=== PATIENT | male | born 1965 | race African-American/Black ===

== ENCOUNTER 2020-06-25 06:07 | Emergency (ER) | payer SELFPAY ==
[~2020-06-25] VITALS: Ht 190.5 cm; Wt 113.6 kg
[2020-06-25 07:26] LABS: BILIRUBIN,URINE NEGATIVE (NEG); CLARITY,URINE CLEAR; COLOR,URINE YELLOW; NITRITE,URINE NEGATIVE (NEG); PH,URINE 7.5 (<5.0-8.0); PROTEIN,URINE NEGATIVE (NEG-TRACE)
[2020-06-25 07:54] LABS: AMORPHOUS SEDIMENT,UR PRESENT /HPF; BACTERIA,URINE FEW /HPF (0-FEW); RBC,URINE OCC /HPF (0-2)
[2020-06-25] MEDS ORDERED: MORPHINE SULFATE 10 MG/ML VIAL. IV ONE (08:00)
[2020-06-25] MEDS ORDERED: ONDANSETRON PF 4 MG/2 ML VIAL. IVP ONE (08:00)
--- NOTE | 2020-06-25 08:02 | ED.ADGEN ---
Past Medical History Past Medical History: Diabetes-Type II, Hypertension Past Surgical History: Other Additional Past Surgical Histo: Hernia Smoking Status: Current Every Day Smoker Alcohol Use: None General Adult EDM: Chief Complaint: ABDOMINAL PAIN HPI: HPI: Patient is a 54-year-old male who presents to the emergency room complaining of excruciating upper and mid abdominal pain. He states that this started on Wednesday after he ate some chili. It has been constant since then. He has not had a bowel movement since Wednesday morning. He has had multiple episodes of vomiting. He feels like he cannot get his breath because of pain. He states the pain is aching and sharp in nature. Laying flat makes it much worse. Pain is slightly better when he is setting up. He has never had anything like this previously. He has never had surgery in his abdomen. He denies any change of taste, change of smell, sore throat, URI symptoms, fever, chills, sweats. Review of Systems: Review of Systems: Complete ROS is negative unless otherwise documented in HPI Current Medications: Current Medications Medications (Trade) Dose Ordered Sig/Leanne Start Time Stop Time Status Last Admin Dose Admin Info (CONTRAST GIVEN -- Rx MONITORING) 1 each PRN DAILY PRN 06/25/20 08:30 06/27/20 08:29 Iohexol (Omnipaque 240 Mg/ml) 50 ml 1X ONCE 06/25/20 08:15 06/25/20 08:19 DC 06/25/20 08:15 50 ML Iohexol (Omnipaque 300 Mg/ml) 75 ml 1X ONCE 06/25/20 08:15 06/25/20 08:19 DC 06/25/20 08:15 75 ML Morphine Sulfate (Morphine Sulfate) 5 mg 1X ONCE 06/25/20 08:00 06/25/20 08:01 DC 06/25/20 08:27 5 MG Multi-Ingredient Mouthwash/Gargle (Gi Cocktail) 20 ml 1X ONCE 06/25/20 09:45 06/25/20 09:46 DC 06/25/20 09:54 20 ML Ondansetron HCl (Zofran) 4 mg 1X ONCE 06/25/20 08:00 06/25/20 08:01 DC 06/25/20 08:26 4 MG Allergies: Allergies: Allergies Coded Allergies Type Severity Reaction Last Updated Verified Penicillins Allergy Intermediate 06/25/20 Yes Physical Exam: PE: General: Awake, alert, moderate distress. Well Nourished, well hydrated. Cooperative HEENT: Atraumatic, EOMI, PERRL, airway patent, moist oral mucosa Neck: Supple, trachea midline Respiratory: CTA bilaterally, tachypneic, no wheezing/crackles CV: RRR, no murmur, cap refill <2 GI: Soft, diffuse tenderness with guarding MSK: No obvious deformities Skin: Warm, dry, intact Neuro: A&O x3, speech NL, sensory and motor grossly intact, no focal deficits Psych: Normal affect, normal mood, not suicidal or homicidal Current Patient Data: Labs: Laboratory Tests Test 06/25/20 06:49 06/25/20 07:32 06/25/20 07:36 Urine Collection Type Unknown Urine Color Yellow Urine Clarity Clear Urine pH 7.5 (<5.0-8.0) Urine Specific Gate 1.015 (1.000-1.030) Urine Protein Negative mg/dL (NEG-TRACE) Urine Glucose (UA) Negative mg/dL (NEG) Urine Ketones (Stick) Negative mg/dL (NEG) Urine Blood Negative (NEG) Urine Nitrite Negative (NEG) Urine Bilirubin Negative (NEG) Urine Urobilinogen Dipstick 1.0 mg/dL (0.2 mg/dL) Urine Leukocyte Esterase Negative (NEG) Urine RBC Occ /HPF (0-2) Urine WBC 1-4 /HPF (0-4) Urine Squamous Epithelial Cells Mod /LPF Urine Amorphous Sediment Present /HPF Urine Bacteria Few /HPF (0-FEW) Urine Mucus Slight /LPF White Blood Count 10.5 x10^3/uL (4.0-11.0) Red Blood Count 4.58 x10^6/uL (4.30-5.70) Hemoglobin 13.0 g/dL (13.0-17.5) Hematocrit 39.2 % (39.0-53.0) Mean Corpuscular Volume 86 fL (79-100) Mean Corpuscular Hemoglobin 29 pg (25-35) Mean Corpuscular Hemoglobin Concent 33 g/dL (31-37) Red Cell Distribution Width 14.4 % (11.5-14.5) Platelet Count 276 x10^3/uL (140-400) Neutrophils (%) (Auto) 74 % (31-73) H Lymphocytes (%) (Auto) 15 % (24-48) L Monocytes (%) (Auto) 10 % (0-9) H Eosinophils (%) (Auto) 0 % (0-3) Basophils (%) (Auto) 1 % (0-3) Neutrophils # (Auto) 7.8 x10^3/uL (1.8-7.7) H Lymphocytes # (Auto) 1.6 x10^3/uL (1.0-4.8) Monocytes # (Auto) 1.0 x10^3/uL (0.0-1.1) Eosinophils # (Auto) 0.0 x10^3/uL (0.0-0.7) Basophils # (Auto) 0.1 x10^3/uL (0.0-0.2) Sodium Level 136 mmol/L (136-145) Potassium Level 2.9 mmol/L (3.5-5.1) *L Chloride Level 98 mmol/L (98-107) Carbon Dioxide Level 27 mmol/L (21-32) Anion Gap 11 (6-14) Blood Urea Nitrogen 10 mg/dL (8-26) Creatinine 0.9 mg/dL (0.7-1.3) Estimated GFR (Cockcroft-Gault) 106.4 BUN/Creatinine Ratio 11 (6-20) Glucose Level 103 mg/dL (70-99) H Calcium Level 9.6 mg/dL (8.5-10.1) Total Bilirubin 0.5 mg/dL (0.2-1.0) Aspartate Amino Transferase (AST) 18 U/L (15-37) Alanine Aminotransferase (ALT) 31 U/L (16-63) Alkaline Phosphatase 53 U/L (46-116) Total Protein 7.8 g/dL (6.4-8.2) Albumin 3.3 g/dL (3.4-5.0) L Albumin/Globulin Ratio 0.7 (1.0-1.7) L Lipase 125 U/L (73-393) Glucose (Fingerstick) 112 mg/dL (70-99) H Laboratory Tests 06/25/20 07:32 Laboratory Tests 06/25/20 07:32 Vital Signs: Vital Signs Date Time Temp Pulse Resp B/P (MAP) Pulse Ox O2 Delivery O2 Flow Rate FiO2 06/25/20 08:28 86 18 126/81 (96) 96 Room Air 06/25/20 06:41 97.9 97.9 EKG: EKG: [] Heart Score: Risk Factors: Risk Factors: DM, Current or recent (<one month) smoker, HTN, HLP, family history of CAD, obesity. Risk Scores: Score 0 - 3: 2.5% MACE over next 6 weeks - Discharge Home Score 4 - 6: 20.3% MACE over next 6 weeks - Admit for Clinical Observation Score 7 - 10: 72.7% MACE over next 6 weeks - Early Invasive Strategies Radiology/Procedures: Radiology/Procedures: [] Course & Med Decision Making: Course & Med Decision Making Pertinent Labs and Imaging studies reviewed. (See chart for details) Patient is a 54-year-old male who presents to the emergency room complaining of severe abdominal pain. Patient does have associated shortness of breath, however he feels this is due to his pain. He has not had any cough or URI symptoms that are suggestive of novel coronavirus 19. Chest x-ray was ordered to rule out any infiltrates. Abdominal work-up was ordered including CMP, CBC, lipase, UA, CT abdomen pelvis with contrast. He was given morphine and Zofran. CT shows esophagitis. Patient likely has gastritis with esophagitis. He will be treated with omeprazole and carafate. Patient placed on augmentin for possible pneumonia. Patient's test results and vitals while in the ED were fully reviewed and discussed with the patient. Patient is stable and at this time does not need admission to the hospital. We have discussed strict return precautions and the importance of following up with their Primary Care Physician. Patient stated understanding and was given an opportunity to ask any questions. Patient is in agreement with plan. Dragon Disclaimer: Dragon Disclaimer: This electronic medical record was generated, in whole or in part, using a voice recognition dictation system. Departure Departure Impression: Primary Impression: Esophagitis Additional Impressions: Gastritis Pleural effusion Disposition: 01 DC HOME SELF CARE/HOMELESS Condition: STABLE Referrals: NO PCP (PCP) Patient Instructions: Gastritis, Adult Scripts Amoxicillin/Potassium Clav (AUGMENTIN 875-125 TABLET) 1 Each Tablet 1 TAB PO Q12HR for 5 Days, #10 TAB Prov: BRIEN YOUNG MD 06/25/20 Omeprazole (OMEPRAZOLE) 40 Mg Capsule.dr 1 CAP PO DAILY, #30 CAP 3 Refills Prov: BRIEN YOUNG MD 06/25/20 Sucralfate (CARAFATE) 1 Gm Tablet 1 TAB PO QID for 30 Days, #120 TAB 0 Refills Prov: BRIEN YOUNG MD 06/25/20 Problem Qualifiers BRIEN YOUNG MD Jun 25, 2020 08:02
[2020-06-25] MEDS ORDERED: IOHEXOL 240 MG/ML 50ML VIAL. PO ONE (08:15)
[2020-06-25] MEDS ORDERED: IOHEXOL 300 MG/ML 100ML VIAL. IV ONE (08:15)
[2020-06-25 08:22] LABS: BASO # 0.1 x10^3/uL (0.0-0.2); BASO % 1 % (0-3); EOS % 0 % (0-3); HEMATOCRIT 39.2 % (39.0-53.0); LYMPH # 1.6 x10^3/uL (1.0-4.8); LYMPH % 15 % (24-48); MEAN CORPUSCULAR HEMOGLOBIN 29 pg (25-35); MEAN CORPUSCULAR HGB CONC 33 g/dL (31-37); MEAN CORPUSCULAR VOLUME 86 fL (79-100); MONO % 10 % (0-9); NEUT # 7.8 x10^3/uL (1.8-7.7); NEUT % 74 % (31-73); PLATELET COUNT 276 x10^3/uL (140-400); RED BLOOD COUNT 4.58 x10^6/uL (4.30-5.70); RED CELL DISTRIBUTION WIDTH 14.4 % (11.5-14.5); WHITE BLOOD COUNT 10.5 x10^3/uL (4.0-11.0)
--- NOTE | 2020-06-25 08:24 | RAD ---
XR CHEST 1V CLINICAL INDICATIONS: Shortness of breath. COMPARISON: November 05, 2005. Findings: Linear atelectasis of the left lung base is seen. No lung consolidation or pleural effusion or pulmonary edema or lung mass or pneumothorax is seen. The heart size, pulmonary vasculature, med iastinum and both edmund are unremarkable. IMPRESSION: Linear atelectasis of the left lung base. Electronically signed by: Sonu Brown MD (06/25/2020 8:22 AM) [id number]
[2020-06-25] MEDS ORDERED: CONTRAST GIVEN. MC PRN (08:30)
[2020-06-25 08:36] LABS: ALBUMIN 3.3 g/dL (3.4-5.0); ALBUMIN/GLOBULIN RATIO 0.7 (1.0-1.7); CALCIUM 9.6 mg/dL (8.5-10.1); CREATININE 0.9 mg/dL (0.7-1.3); GFR 106.4; TOTAL BILIRUBIN 0.5 mg/dL (0.2-1.0); TOTAL PROTEIN 7.8 g/dL (6.4-8.2)
[2020-06-25 08:38] LABS: POTASSIUM 2.9 mmol/L (3.5-5.1)
--- NOTE | 2020-06-25 09:20 | RAD ---
EXAM: Abdomen and pelvis CT with intravenous contrast. HISTORY: Severe pain. TECHNIQUE: Computed tomographic images of the abdomen and pelvis were obtained following the administ ration of intravenous contrast. Multiplanar reformatting was performed. *One or more of the following individualized dose reduction techniques were utilized for this examina tion: 1. Automated exposure control. 2. Adjustment of the mA and/or kV according to patient size. 3. Use of iterative reconstruction technique. COMPARISON: None. FINDINGS: Evaluation of the lower thorax demonstrates trace bilateral pleural effusions and patchy bi lateral lower lobe atelectasis. There is a patulous distal esophagus with slightly prominent wall. No hepatic lesion is seen. The gallbladder, pancreas, spleen and adrenal glands are unremarkable. There is a 5 mm hypodense lesion within the medial upper pole of the left kidney, too small to characteriz e and likely a cyst. There is no appendicitis. There is no bowel obstruction. The urinary bladder is unremarkable. The aorta is normal in caliber. There is no lymphadenopathy. There are degenerative winston nges throughout the spine. There is no acute or suspicious osseous lesion. IMPRESSION: 1. Slightly patulous distal esophagus with wall thickening. Correlate for possible reflux esophagitis . 2. Trace bilateral pleural effusions and bilateral lower lobe atelectasis. 3. Tiny left renal cortical cyst. Follow-up is not routinely recommended for simple cysts. Electronically signed by: Sandra Lantigua MD (06/25/2020 9:18 AM) [id number]
[2020-06-25] MEDS ORDERED: LIDO:MAALOX 1:1 20 ML SINGLE DOSE. SWSW ONE (09:45)
[2020-06-25 10:00] VITALS: BP 156/84
[2020-06-25] MEDS ORDERED: OMEP40CA7 PO (10:20)
[2020-06-25] MEDS ORDERED: SUCR1TAB35 PO (10:20)
[2020-06-25] MEDS ORDERED: AMOX1TAB61 PO (10:20)
== END 2020-06-25 10:32 | disposition home or self-care (01) ==
LOC: ER 06:07
DX: K20.90 Esophagitis, unspecified without bleeding (principal); K29.70 Gastritis, unspecified, without bleeding; J90 Pleural effusion, not elsewhere classified; E11.9 Type 2 diabetes mellitus without complications; I10 Essential (primary) hypertension; F17.200 Nicotine dependence, unspecified, uncomplicated; Z88.0 Allergy status to penicillin
CPT/HCPCS: 36415; 71045; 74177; 80053; 81001; 82962; 83690; 85025; 96374; 96375; 99285; J2270; J2405; Q9966; Q9967

== ENCOUNTER 2020-11-29 09:11 | Emergency (ER) | payer SELFPAY ==
[~2020-11-29] VITALS: Ht 190.5 cm; Wt 104.5 kg
[~2020-11-29 09:11] MED LIST: AMOX1TAB61 PO; OMEP40CA7 PO; SUCR1TAB35 PO
[2020-11-29 10:11] VITALS: BP 141/103
[2020-11-29] MEDS ORDERED: DICL50TA4 PO (11:19)
[2020-11-29] MEDS ORDERED: METH4TAB2 PO (11:19)
[2020-11-29] MEDS ORDERED: HYDR-2761 PO (11:19)
[2020-11-29] MEDS ORDERED: ORPH100T PO (11:19)
--- NOTE | 2020-11-29 11:20 | PHYS DOC ---
Past Medical History Past Medical History: Diabetes-Type II, High Cholesterol, Hypertension Additional Past Medical Histor: ECZEMA Past Surgical History: No Surgical History Additional Past Surgical Histo: Hernia Smoking Status: Never Smoker Alcohol Use: None General Adult EDM: Chief Complaint: BACK PAIN OR INJURY HPI: HPI: Patient is a 54 year old male who presents with a couple days ago was lifting a water heater and then felt a sharp shooting pain in the left lower back into his hip. He states that then last night he was working on his car and again felt it. He states this morning it is hard to get up and down was hard for him to get out of bed or walk. He states that especially with moving and sharp shooting pain. He denies numbness or tingling, focal weakness, loss of bowel bladder, urinary symptoms, fever. Review of Systems: Review of Systems: Constitutional: Denies fever or chills. [] Eyes: Denies change in visual acuity. [] HENT: Denies nasal congestion or sore throat. [] Respiratory: Denies cough or shortness of breath. [] Cardiovascular: Denies chest pain or edema. [] GI: Denies abdominal pain, nausea, vomiting, bloody stools or diarrhea. [] : Denies dysuria. [] Musculoskeletal: + Left back pain or + left hip joint pain. [] Integument: Denies rash. [] Neurologic: Denies headache, focal weakness or sensory changes. [] Endocrine: Denies polyuria or polydipsia. [] Lymphatic: Denies swollen glands. [] Psychiatric: Denies depression or anxiety. [] Heart Score: C/O Chest Pain: No Risk Factors: Risk Factors: DM, Current or recent (<one month) smoker, HTN, HLP, family history of CAD, obesity. Risk Scores: Score 0 - 3: 2.5% MACE over next 6 weeks - Discharge Home Score 4 - 6: 20.3% MACE over next 6 weeks - Admit for Clinical Observation Score 7 - 10: 72.7% MACE over next 6 weeks - Early Invasive Strategies Allergies: Allergies: Allergies Coded Allergies Type Severity Reaction Last Updated Verified Penicillins Allergy Intermediate 06/25/20 Yes Physical Exam: PE: Constitutional: Well developed, well nourished, no acute distress, non-toxic appearance. [] HENT: Normocephalic, atraumatic, bilateral external ears normal, oropharynx moist, no oral exudates, nose normal. [] Eyes: PERRLA, EOMI, conjunctiva normal, no discharge. [] Neck: Normal range of motion, no tenderness, supple, no stridor. [] Cardiovascular:Heart rate regular rhythm, no murmur [] Lungs & Thorax: Bilateral breath sounds clear to auscultation [] Abdomen: Bowel sounds normal, soft, no tenderness, no masses, no pulsatile masses. [] Skin: Warm, dry, no erythema, no rash. [] Back: No tenderness, no CVA tenderness. [] Extremities: No tenderness, no cyanosis, no clubbing, low back ROM intact but limited due to pain, no edema. [] Neurologic: Alert and oriented X 3, normal motor function, normal sensory function, no focal deficits noted. [] Psychologic: Affect normal, judgement normal, mood normal. [] Current Patient Data: Vital Signs: Vital Signs Date Time Temp Pulse Resp B/P (MAP) Pulse Ox O2 Delivery O2 Flow Rate FiO2 11/29/20 10:11 97.9 80 16 141/103 (116) 100 Room Air 97.9 EKG: EKG: [] Radiology/Procedures: Radiology/Procedures: [] Course & Med Decision Making: Course & Med Decision Making Pertinent Labs and Imaging studies reviewed. (See chart for details) See HPI. No focal bony spinal tenderness. No tenderness to his back. No focal weakness. Ambulatory with a steady gait. Speaks in full complete sentences. No sensation loss. No saddle paresthesia. No extremity edema. Skin pink warm and dry. Popliteal pulse strong and present. Alert and oriented x4. [] Dragon Disclaimer: Dragon Disclaimer: This electronic medical record was generated, in whole or in part, using a voice recognition dictation system. Departure Departure Impression: Primary Impression: Back pain Qualified Codes: M54.42 - Lumbago with sciatica, left side Disposition: 01 HOME / SELF CARE / HOMELESS Condition: STABLE Referrals: NO PCP (PCP) Patient Instructions: Low Back Strain with [facility], Sciatica with [facility] Additional Instructions: Follow-up with her primary care physician. Rest. Take medication as prescribed and with food. Try using a heating pad. Scripts Hydrocodone Bit/Acetaminophen (HYDROCODONE-APAP 5-325 ) 1 Tab Tablet 1 TAB PO PRN Q6HRS PRN for PAIN, #6 TAB 0 Refills Prov: MAIDA MURILLO APRN 11/29/20 Orphenadrine Citrate (ORPHENADRINE CITRATE) 100 Mg Tablet.er 1 TAB PO BID, #14 TAB 1 Refill Prov: MAIDA MURILLO APRN 11/29/20 Diclofenac Sodium (DICLOFENAC SODIUM) 50 Mg Tablet.dr 1 TAB PO BID, #14 TAB Prov: MAIDA MURILLO APRN 11/29/20 Methylprednisolone (MEDROL) 4 Mg Tab.ds.pk 1 PKG PO UD, #1 PKG Prov: MAIDA MURILLO APRN 11/29/20 MAIDA MURILLO APRN Nov 29, 2020 11:20
== END 2020-11-29 11:59 | disposition home or self-care (01) ==
LOC: ER 09:11
DX: M54.42 Lumbago with sciatica, left side (principal); M25.552 Pain in left hip; E11.9 Type 2 diabetes mellitus without complications; E78.00 Pure hypercholesterolemia, unspecified; I10 Essential (primary) hypertension; Z88.0 Allergy status to penicillin
CPT/HCPCS: 99283

== ENCOUNTER 2021-02-17 21:51 | Emergency (ER) | payer SELFPAY ==
[~2021-02-17] VITALS: Ht 190.5 cm; Wt 102.1 kg
[~2021-02-17 21:51] MED LIST changes: +DICL50TA4 PO; +HYDR-2761 PO; +METH4TAB2 PO; +ORPH100T PO
[2021-02-17] MEDS ORDERED: MUPI22OI2 TP (22:33)
[2021-02-17] MEDS ORDERED: DOXY-181 PO (22:33)
[2021-02-17] MEDS ORDERED: PRED50TA PO (22:33)
--- NOTE | 2021-02-17 22:36 | PHYS DOC ---
Past Medical History Past Medical History: Diabetes-Type II, High Cholesterol, Hypertension Additional Past Medical Histor: ECZEMA Past Surgical History: No Surgical History Additional Past Surgical Histo: Hernia Smoking Status: Never Smoker Alcohol Use: None General Adult EDM: Chief Complaint: FACE PROBLEM HPI: HPI: Patient is a 55 year old male without pertinent past medical history who presents with swelling on his scalp and forehead for the past 2 days. Started the day after he dyed his hair with a new product. Yesterday the hair started crusting with yellow crust. No fevers or chills. Today did have an episode of nausea with some vomiting. He has not had any swelling away from his hairline. This includes his throat, tongue, lips. No difficulty breathing. No dental pain. He is not on any prescription medications. He does have a history of eczema, but has never had eczema in this area before. Review of Systems: Review of Systems: Constitutional: Denies fever or chills. [] Eyes: Denies change in visual acuity. [] HENT: Denies nasal congestion or sore throat. [] Respiratory: Denies cough or shortness of breath. [] Cardiovascular: Denies chest pain or edema. [] GI: Denies abdominal pain, nausea, vomiting, bloody stools or diarrhea. [] : Denies dysuria. [] Musculoskeletal: Denies back pain or joint pain. [] Integument: + Rash on his scalp. [] Neurologic: Denies headache, focal weakness or sensory changes. [] Endocrine: Denies polyuria or polydipsia. [] Lymphatic: Denies swollen glands. [] Psychiatric: Denies depression or anxiety. [] Heart Score: C/O Chest Pain: No Risk Factors: Risk Factors: DM, Current or recent (<one month) smoker, HTN, HLP, family h istory of CAD, obesity. Risk Scores: Score 0 - 3: 2.5% MACE over next 6 weeks - Discharge Home Score 4 - 6: 20.3% MACE over next 6 weeks - Admit for Clinical Observation Score 7 - 10: 72.7% MACE over next 6 weeks - Early Invasive Strategies Allergies: Allergies: Allergies Coded Allergies Type Severity Reaction Last Updated Verified Penicillins Allergy Intermediate 06/25/20 Yes Physical Exam: PE: Constitutional: Well developed, well nourished, no acute distress, non-toxic appearance. [] HENT: No evidence of oral, pharyngeal, uvular swelling. [] Eyes: PERRLA, EOMI, conjunctiva normal, no discharge. No pain with ocular range of motion. [] Neck: Normal range of motion, no tenderness, supple, no stridor. [] Cardiovascular:Heart rate regular rhythm, no murmur [] Lungs & Thorax: Bilateral breath sounds clear to auscultation [] Abdomen: Bowel sounds normal, soft, no tenderness, no masses, no pulsatile masses. [] Skin: Maculopapular rash with raised borders surrounding his scalp line bilaterally with yellow crusting. [] Back: No tenderness, no CVA tenderness. [] Extremities: No tenderness, no cyanosis, no clubbing, ROM intact, no edema. [] Neurologic: Alert and oriented X 3, normal motor function, normal sensory function, no focal deficits noted. [] Psychologic: Affect normal, judgement normal, mood normal. [] EKG: EKG: [] Radiology/Procedures: Radiology/Procedures: [] Course & Med Decision Making: Course & Med Decision Making Pertinent Labs and Imaging studies reviewed. (See chart for details) Patient 55-year-old male who presents with swelling in his scalp and forehead for the past 2 days. Started a day after using a new hair product to dye his hair. On arrival is afebrile, hemodynamically stable. No evidence of airway swelling. No evidence of abscess or dental process. Exam is most consistent with a contact dermatitis with superinfection with some yellow crusting. Given the extent of this involving his entire scalp will treat with a oral steroid and doxycycline. mupirocin for the crusted sections. Return precautions discussed for fever/chills, shortness of breath, and especially for any swelling around his mouth or throat. 2230 Jimi Disclaimer: Jimi Disclaimer: This electronic medical record was generated, in whole or in part, using a voice recognition dictation system. Departure Departure Impression: Primary Impression: Contact dermatitis Additional Impressions: Cellulitis Impetigo Disposition: HOME / SELF CARE / HOMELESS Condition: STABLE Referrals: NO PCP (PCP) Additional Instructions: I think that you had an allergic reaction to your new hair dye. I believe that this then became infected. I am treating you with 3 different medications. To decrease swelling: Prednisone 50 mg by mouth daily for 5 days To treat the skin infection: Doxycycline 100 mg by mouth twice daily for 7 days Mupirocin ointment, apply to crusted areas of scalp 3 times daily for 7 days. If you develop shortness of breath, fever/chills, swelling in your mouth or thr oat please return to the emergency department immediately for reevaluation. Since you do not have a PCP, please call the number for the [facility] at [phone]. Scripts Mupirocin (MUPIROCIN OINTMENT) 22 Gm Oint...g. 1 CATHLEEN TP TID for impetigo , #1 EACH Apply to crusted areas of your scalp three times daily. Prov: LYN MENDOZA MD 02/17/21 Prednisone (PREDNISONE) 50 Mg Tablet 1 TAB PO DAILY, #5 TAB Prov: LYN MENDOZA MD 02/17/21 Doxycycline Monohydrate (DOXYCYCLINE MONOHYDRATE) 100 Mg Capsule 1 CAP PO BID for 7 Days, #14 CAP Prov: LYN MENDOZA MD 02/17/21 LYN MENDOZA MD Feb 17, 2021 22:36
[2021-02-17 22:38] VITALS: BP 103/64
[2021-02-17] MEDS ORDERED: predniSONE 10 MG TABLET PO ONE (23:00)
[2021-02-17] MEDS ORDERED: DOXYCYCLINE HYCLATE 100 MG TABLET PO ONE (23:00)
== END 2021-02-17 23:18 | disposition home or self-care (01) ==
LOC: ER 21:51
DX: L25.9 Unspecified contact dermatitis, unspecified cause (principal); L01.00 Impetigo, unspecified; L03.811 Cellulitis of head [any part, except face]; E11.9 Type 2 diabetes mellitus without complications; E78.00 Pure hypercholesterolemia, unspecified; I10 Essential (primary) hypertension; Z88.0 Allergy status to penicillin
CPT/HCPCS: 99283; J7512

== ENCOUNTER 2021-10-01 18:50 | Emergency (ER) | payer MEDICAID ==
[~2021-10-01] VITALS: Ht 190.5 cm; Wt 111.1 kg
[~2021-10-01 18:50] MED LIST changes: +DOXY-181 PO; +MUPI22OI2 TP; +PRED50TA PO
[2021-10-01 20:15] VITALS: BP 159/99
--- NOTE | 2021-10-01 20:57 | PHYS DOC ---
Past Medical History Past Medical History: Diabetes-Type II, High Cholesterol, Hypertension, S ciatica Additional Past Medical Histor: ECZEMA Past Surgical History: Other Additional Past Surgical Histo: Hernia Smoking Status: Never Smoker Alcohol Use: None General Adult EDM: Chief Complaint: BACK PAIN - NO INJURY HPI: HPI: Patient is a 55 year old male with history of diabetes type 2, hypertension, high cholesterol, chronic low back pain with sciatica, presented to the ED today complaining of 7 out of 10 low bilateral back pain, symptoms began 2 days ago. Patient denies any injuries. Denies any numbness or tingling to bilateral lower extremities. Reports pain radiates to the hips into the lower extremities which he states is not new. Denies any loss of bowel/bladder function. States the pain is worse when he is walking. He is requesting a note for work as well as something for his pain. Review of Systems: Review of Systems: Constitutional: Denies fever or chills. [] GI: Denies abdominal pain, nausea, vomiting, bloody stools or diarrhea. [] : Denies dysuria. [] Musculoskeletal: Reports low back pain Integument: Denies rash. [] Neurologic: Denies headache, focal weakness or sensory changes. [] Psychiatric: Denies depression or anxiety. [] Heart Score: C/O Chest Pain: N/A Risk Factors: Risk Factors: DM, Current or recent (<one month) smoker, HTN, HLP, family history of CAD, obesity. Risk Scores: Score 0 - 3: 2.5% MACE over next 6 weeks - Discharge Home Score 4 - 6: 20.3% MACE over next 6 weeks - Admit for Clinical Observation Score 7 - 10: 72.7% MACE over next 6 weeks - Early Invasive Strategies Allergies: Allergies: Allergies Coded Allergies Type Severity Reaction Last Updated Verified Penicillins Allergy Intermediate 06/25/20 Yes Physical Exam: PE: Constitutional: Well developed, well nourished, no acute distress, non-toxic appearance. [] Skin: Warm, dry, no erythema, no rash. [] Back: Diffuse paraspinal muscle tenderness bilateral low lumbar spine, no midline lumbar spine tenderness, no CVA tenderness. Straight leg raise was not attempted, patient is fidgeting up and down on the bed Extremities: No tenderness, no cyanosis, no clubbing, ROM intact, no edema. [] Neurologic: Alert and oriented X 3, normal motor function, normal sensory function, no focal deficits noted. [] Psychologic: Very talkative. Affect normal, judgement normal, mood normal. [] EKG: EKG: [] Radiology/Procedures: Radiology/Procedures: [] Course & Med Decision Making: Course & Med Decision Making Pertinent Labs and Imaging studies reviewed. (See chart for details) This a 55-year-old male patient presented to the ED complaining of low back pain radiating to the hips into the lower extremities. Has history of similar pain. Denies any cauda equina syndrome symptoms. He has an appointment with his PCP in November. He was encouraged to follow-up. Provided return precautions and discharged in stable condition Jimi Disclaimer: Jimi Disclaimer: This electronic medical record was generated, in whole or in part, using a voice recognition dictation system. Departure Departure Impression: Primary Impression: Back pain Qualified Codes: M54.42 - Lumbago with sciatica, left side; M54.41 - Lumbago with sciatica, right side; G89.29 - Other chronic pain Disposition: HOME / SELF CARE / HOMELESS Condition: STABLE Referrals: NO PCP (PCP) Follow-up with your doctor in the next 2 weeks Patient Instructions: Back Pain, Adult Additional Instructions: You were seen for low back pain with sciatica. Take the prescribed medications as ordered. Follow-up with your doctor in 1 to 2 weeks. Come back to the ED at any point symptoms worsen Scripts Hydrocodone Bit/Acetaminophen (HYDROCODONE-APAP 5-325 ) 1 Tab Tablet 1 TAB PO PRN Q6HRS PRN for PAIN, #10 TAB 0 Refills Prov: HALLEYAYLIN Donny MORALESN 10/01/21 Naproxen (NAPROXEN) 500 Mg Tablet 1 TAB PO BID for pain, #14 TAB 0 Refills Prov: AYLIN ROWLEY APRN 10/01/21 Cyclobenzaprine Hcl (CYCLOBENZAPRINE HCL) 10 Mg Tablet 1 TAB PO TID, #30 TAB Prov: HALLEYAYLIN Donny MORALESN 10/01/21 AYLIN ROWLEY APRN Oct 01, 2021 20:57
[2021-10-01] MEDS ORDERED: CYCL10TA19 PO (21:00)
[2021-10-01] MEDS ORDERED: NAPR-514 PO (21:00)
[2021-10-01] MEDS ORDERED: HYDR-2761 PO (21:00)
[2021-10-01] MEDS ORDERED: HYDROcodone/APAP 5/325MG 1 TAB TABLET PO ONE (21:30)
[2021-10-01] MEDS ORDERED: diazePAM 5 MG TABLET PO ONE (21:30)
== END 2021-10-01 21:55 | disposition home or self-care (01) ==
LOC: ER 18:50
DX: M54.42 Lumbago with sciatica, left side (principal); E11.9 Type 2 diabetes mellitus without complications; G89.29 Other chronic pain; M54.41 Lumbago with sciatica, right side; E78.00 Pure hypercholesterolemia, unspecified; I10 Essential (primary) hypertension; Z88.0 Allergy status to penicillin
CPT/HCPCS: 99283; 99284

== ENCOUNTER → 2021-11-10 | Outpatient (CLI) | payer OTHER ==
[~2021-11-10] MED LIST changes: +CYCL10TA19 PO; +NAPR-514 PO
--- NOTE | 2021-11-10 12:51 | RAD ---
XR KNEE_RT 1-2 VIEWS History: Reason: LOW BACK PAIN. RIGHT KNEE PAIN. / Spl. Instructions: / History: Technique: 2 views right knee Comparison: None. Findings: Mild right knee degenerative changes with joint space narrowing and marginal osteophyte formation. Mi nimal knee joint effusion. No dislocation. No acute fracture. Impression: 1. Mild right knee DJD. Electronically signed by: Saeed Hensley DO (11/10/2021 12:49 PM) [id number]
--- NOTE | 2021-11-10 12:53 | RAD ---
XR LUMBAR SPINE 2-3V History: Reason: LOW BACK PAIN / Spl. Instructions: / History: Technique: 2 views lumbar spine. Comparison: None. Findings: Normal vertebral body height and alignment. No acute fracture. Advanced degenerative disc changes thr oughout the lumbar spine. Facet arthropathy. Impression: 1. Advanced lumbar spondylosis. Electronically signed by: Saeed Hensley DO (11/10/2021 12:51 PM) [id number]
== END ==
LOC: RAD 09:12
PROVIDERS: ATTEND Family Medicine
DX: Z02.71 Encounter for disability determination (principal); M17.11 Unilateral primary osteoarthritis, right knee; M25.461 Effusion, right knee; M25.761 Osteophyte, right knee; M47.816 Spondylosis without myelopathy or radiculopathy, lumbar region; M51.36 Other intervertebral disc degeneration, lumbar region
CPT/HCPCS: 72100; 73560